=== PATIENT | female | born 1960 | race Caucasian/White ===

== ENCOUNTER → 2018-02-02 | Day surgery (SDC) | payer BC ==
[~2018-02-02] VITALS: Ht 170.2 cm; Wt 59.0 kg
[~2018-02-02] MED LIST: BACITRACIN TOP OINT 15 GM TUBE ONE; BUPIVACAINE/EPINEPHRINE 0.25% 50 ML VIAL ONE; CHLORHEXIDINE GLUCONATE 2 % 1 PACK (2 CLOTHS) TOPICAL PRN; FAMOTIDINE 20 MG/2 ML VIAL ONE; LACTATED RINGER'S 1000 ML IV PRN; MIDAZOLAM HCL 2 MG/2 ML VIAL ONE; POVIDONE IODINE 5% (ANTISEPSIS KIT) 4 APPLICATIONS EACH NARE PRN; ceFAZolin 1,000 MG/NS 100 ML IV SCH
[2018-02-02 07:12] LABS: HEMATOCRIT 42.7 % (35.0-46.0); HEMOGLOBIN 14.3 GM/DL (11.6-15.3); MEAN CELL VOLUME 96.6 FL (80.0-100.0); MEAN CORPUSCULAR HEMOGLOBIN 32.3 PG (27.0-34.0); MEAN CORPUSCULAR HGB CONC 33.5 % (32.0-36.0); MEAN PLATELET VOLUME 7.4 FL (7.0-11.0); PLATELET COUNT 319 TH/MM3 (150-450); RED BLOOD COUNT 4.42 MIL/MM3 (4.00-5.30); WHITE BLOOD COUNT 5.4 TH/MM3 (4.0-11.0)
[2018-02-02 10:05] VITALS: BP 122/76; PULSE 61; RESP 16; TEMP 98.1; O2SAT 97
--- NOTE | 2018-02-02 18:15 | EKG ---
Date Performed: 02/02/2018 Time Performed: 07:13:56 PTAGE: 57 years EKG: Sinus rhythm POSSIBLE ANTERIOR MYOCARDIAL INFARCTION ABNORMAL ECG NO PREVIOUS TRACING DOCTOR: Nadira Silva Interpretating Date/Time 02/02/2018 18:12:05
--- NOTE | 2018-02-03 16:34 | PD.OP ---
Operative Report Date of Surgery: Feb 02, 2018 Preoperative Diagnosis: (1) Mucous cyst of digit of left hand Postoperative Diagnosis: (1) Mucous cyst of digit of left hand Procedure: Excision of mucous cyst of left middle finger (77069) Anesthesia: General Surgeon: Maxim Fernando Horticultural Worker(s): . Operation and Findings: This is a 57-year-old female who presented with a left middle finger mucous cyst of the DIP desiring excision. Risks benefits and alternative treatments were discussed. All questions were answered. Patient expressed understanding. Patient elected to assume the risks of excision of her mucous cyst. Informed consent was obtained. The surgical site was marked in the preoperative holding bay. The patient was taken to the operating room. All pressure points were padded. A surgical timeout was performed. After the smooth induction of general anesthesia, the left middle finger was blocked with quarter percent Marcaine with epinephrine. The surgical site was prepped and draped in the usual sterile fashion. A finger tourniquet was fashioned from the finger of a sterile glove. A less than 1 cm incision was made over the mucous cyst transversely. The mucous cyst was dissected free using blunt dissection. The terminal tendon and radial collateral bands were visualized and kept free from injury. The mucous cyst was tracked to the joint capsule of the radial middle finger DIP. The mucous cyst was excised with a very small cuff of joint capsule. Following this an osteophyte over the proximal radial distal phalanx of the middle finger was excised using rongeurs. The surgical site was irrigated and the skin was reapproximated using interrupted 5-0 nylon's. Surgical site was cleaned. The incision was dressed with bacitracin Xeroform gauze dry gauze and Coban. The patient was awoken from anesthesia and arrived stable and doing well to the PACU. All needle sponge and instrument counts were correct 2. Maxim Fernando MD Feb 03, 2018 16:34
== END | disposition home or self-care (01) ==
LOC: PHSDC 06:07
PROVIDERS: ATTEND Student in an Organized Health Care Education/Training Program
DX: M71.342 Other bursal cyst, left hand (principal); R94.31 Abnormal electrocardiogram [ECG] [EKG]
CPT/HCPCS: 01810; 26160; 36415; 85027; 88304; 93005; J0690; J2250; J3010; J7120